=== PATIENT | female | born 1985 | race Caucasian/White ===

== ENCOUNTER 2024-06-05 08:03 | Emergency (ER) | payer MEDICAID ==
[~2024-06-05] VITALS: Ht 167.6 cm; Wt 120.9 kg
[2024-06-05] MEDS ORDERED: CYCL-1 PO (08:53)
[2024-06-05 09:04] VITALS: BP 144/80; PULSE 88; RESP 20; TEMP 98.2; O2SAT 99
[2024-06-05] MEDS: ketorolac trometh 15mg/ml vial 15 MG/ML ML IM ONE (09:04)
[2024-06-05] MEDS: cyclobenzaprine 10mg tablet PO ONE (09:04)
== END 2024-06-05 09:08 | disposition home or self-care (01) ==
LOC: ER 08:04
DX: M54.50 Low back pain, unspecified (principal); M62.830 Muscle spasm of back; G89.29 Other chronic pain; M54.9 Dorsalgia, unspecified; F17.200 Nicotine dependence, unspecified, uncomplicated; Z79.899 Other long term (current) drug therapy
CPT/HCPCS: 96372; 99283; J1885

== ENCOUNTER 2025-03-11 13:33 | Emergency (ER) | payer MEDICAID ==
[~2025-03-11] VITALS: Ht 167.6 cm; Wt 122.7 kg
[~2025-03-11 13:33] MED LIST: CYCL-1 PO
[2025-03-11 13:36] VITALS: BP 136/83; PULSE 103; TEMP 97.2; O2SAT 99
[2025-03-11] MEDS ORDERED: METH4TAB81 PO (15:46)
--- NOTE | 2025-03-11 15:46 | Physician Documentation ---
History of Present Illness ~ Chief Complaint: Back Pain Stated Complaint: LEG PAIN Time Seen by MD: 14:55 HPI Patient is seen today with complaints of right-sided low back pain with right- sided sciatica that started today at work. Patient states this has happened previously and states he just needs a few days off work. Patient states she has muscle relaxers at home. Patient has no other concern or complaint at this time. She denies any saddle anesthesia or changes in bowel or bladder habits. Medication Reconciliation Allergies: Coded Allergies: No Known Allergies (Unverified , 03/11/25) Scheduled Cyclobenzaprine* (Cyclobenzaprine*), 1 TAB PO HS Past Medical History Past Medical History: Chronic Back Pain Past Surgical History: no surgical history Alcohol Use: None Drug Use: none Review of Systems Constitutional: Denies: chills, fever, weakness Eyes: Denies: pain, blurred vision ENT: Denies: ear pain, nose pain, throat pain, mouth pain Respiratory: Denies: cough, shortness of breath Cardiovascular: Denies: chest pain, palpitations Gastrointestinal: Denies: abdominal pain, nausea, vomiting Genitourinary: Denies: burning, dysuria Female Genitalia: Denies: vaginal discharge, pelvic pain Neurological: Denies: headache, dizziness Musculoskeletal: Denies: pain, swelling Integumentary: Denies: rash, lesions Allergic/Immunologic: Denies: hives, itching Hematologic/Lymphatic: Denies: no symptoms reported Psychiatric: Denies: depression, anxiety Physical Exam Physical Exam Vital Signs: Temperature: 97.2, Source: Temporal, Heart Rate: 103, Respiratory Rate: 16, BP: 136/83, Pulse Oximetry: 99, Weight: 122.730 Oxygen Flow Rate: 0 Physical Exam General: Awake and Alert, no acute distress. HEENT: Conjunctiva pink, Sclera clear, Mucus Membranes moist. Neck: Supple without masses and tenderness. Resp: Unlabored. Lungs clear to auscultation bilaterally. Heart: Regular Rate and rhythm, normal S1 and S2 without murmur, rub or gallop. Musculoskeletal: Patient has decreased range of motion of the lumbar spine in all planes of motion. Patient is neurovascularly intact distally. Motor function is intact distally. Strength is intact. Extremities: No cyanosis,clubbing or edema. Skin: Warm and Dry. Progress Results/Orders Results/Orders Vital Signs 03/11/25 13:36 Temp 97.2 Pulse 103 Resp 16 B/P (MAP) 136/83 Pulse Ox 99 O2 Flow Rate 0 Medical Decision Making Findings Patient is seen today with complaints of right-sided low back pain with right- sided sciatica that started today at work. Patient states this has happened previously and states he just needs a few days off work. Patient states she has muscle relaxers at home. Patient has no other concern or complaint at this time. She denies any saddle anesthesia or changes in bowel or bladder habits. Patient was given dose of Toradol 30 mg IM in the ED tonight. Medrol Dosepak sent to patient's pharmacy. Patient will take her muscle relaxers as prescribed. Patient will perform stretching exercises as indicated and demon strated in the ED today. Patient will follow up with primary care in 3-5 days if no better as needed sooner. For possible referral to physical therapy or insurance plan specialist. Return to ED with any worsening, concerning or changing symptoms. Departure Disposition: 01 HOME / SELF CARE / HOMELESS Impression: Primary Impression: Sciatica Qualified Codes: M54.31 - Sciatica, right side Discharge Instructions: Sciatica Additional Instructions: Patient was given dose of Toradol 30 mg IM in the ED tonight. Medrol Dosepak sent to patient's pharmacy. Patient will take her muscle relaxers as prescribed. Patient will perform stretching exercises as indicated and demonstrated in the ED today. Patient will follow up with primary care in 3-5 days if no better as needed sooner. For possible referral to physical therapy or insurance plan specialist. Return to ED with any worsening, concerning or changing symptoms. Departure Forms: Excuse form Work or School Excused From: Work Excuse beginning now through the following date: Mar 13, 2025 Referrals: NO PRIMARY CARE PROVIDER (PCP) Prescriptions Methylprednisolone (Medrol Dosepak) 4 Mg Tab.ds.pk 0 PO UD, #21 TAB 0 Refills take 6 Pills Day 1, 5 Pills Day 2, 4 Pills Day 3, 3 Pills Day 4, 2 Pills Day 5 and 1 pill Day 6 Prov: RUKHSANA TROY 03/11/25 Signature Scribe Signature: No scribe Attestation: No scribe RUKHSANA TROY Mar 11, 2025 15:46
[2025-03-11 15:52] VITALS: RESP 18
[2025-03-11] MEDS: ketorolac trometh 30MG/ML vial 30 MG/ML VIAL IM STA (15:52)
== END 2025-03-11 16:04 | disposition home or self-care (01) ==
LOC: ER 13:34
DX: M54.41 Lumbago with sciatica, right side (principal); Z79.899 Other long term (current) drug therapy
CPT/HCPCS: 96372; 99283; J1885